=== PATIENT | female | born 1975 ===

== ENCOUNTER 2020-10-27 14:13 | Emergency (ER) | payer SELFPAY ==
[2020-10-27] MEDS ORDERED: hydrOXYzine HCL 25 MG TAB ONE (14:50)
[2020-10-27 14:58] LABS: Urine Blood 2+ (Negative); Urine Glucose Negative (Negative); Urine Protein Negative (Negative); Urine Specific Gravity 1.015 (1.005-1.030)
--- NOTE | 2020-10-27 16:49 | RAD REPORT ---
EXAM DESCRIPTION: RAD - Chest Pa And Lat (2 Views) - 10/27/2020 4:44 pm CLINICAL HISTORY: DYSPNEA, shortness of breath and chest tightness COMPARISON: None TECHNIQUE: Frontal and lateral views of the chest were obtained. FINDINGS: The lungs are clear. Heart size is normal and central vasculature is within normal limit s. No pleural effusion or pneumothorax seen. No acute bony finding noted. No aortic abnormality. IMPRESSION: No acute cardiopulmonary process.
--- NOTE | 2020-10-27 16:58 | EDPHYS ---
Physician Documentation [facility] Name: Charu Stark Age: 45 yrs Sex: Female : 1975 Arrival Date: 10/27/2020 Time: 14:16 Bed DX2 Private MD: ED Physician Pawel Hargrove HPI: 10/27 15:24 This 45 yrs old Unknown Female presents to ER via Ambulatory with complaints of kb Shortness Of Breath, Chest Pain. 15:24 The patient has shortness of breath at rest. Onset: The symptoms/episode began/occurred kb 3 day(s) ago. Duration: The symptoms are continuous. The patient's shortness of breath is aggravated by nothing, is alleviated by nothing. Associated signs and symptoms: Pertinent positives: insomnia, anxiety. Severity of symptoms: At their worst the symptoms were mild moderate in the emergency department the symptoms are unchanged. The patient has not experienced similar symptoms in the past. The patient has not recently seen a physician. Pt states she feels like she cannot take a deep breath. States she hasn't been able to sleep well in the past 3 nights and is anxious. Reports decreased appetite. Historical: - Allergies: 14:22 Iodine; sv - Immunization history:: Adult Immunizations up to date. - Social history:: Smoking status: Patient denies any tobacco usage or history of. ROS: 15:23 Constitutional: Negative for fever, chills, and weight loss. kb 15:23 Respiratory: Positive for shortness of breath. 15:23 Psych: Positive for anxiety. 15:23 All other systems are negative. Exam: 14:38 ECG was reviewed by the Attending Physician. kb 15:24 Constitutional: This is a well developed, well nourished patient who is awake, alert, kb and in no acute distress. Head/Face: Normocephalic, atraumatic. ENT: Moist Mucous membranes Cardiovascular: Regular rate and rhythm with a normal S1 and S2. No gallops, murmurs, or rubs. No pulse deficits. Respiratory: Respirations even and unlabored. No increased work of breathing, no retractions or nasal flaring. Skin: Warm, dry with normal turgor. Normal color. MS/ Extremity: Pulses equal, no cyanosis. Neurovascular intact. Full, normal range of motion. Neuro: Awake and alert, GCS 15, oriented to person, place, time, and situation. Moves all extremities. Normal gait. Psych: Awake, alert, with orientation to person, place and time. Behavior, mood, and affect are within normal limits. 15:24 Constitutional: The patient appears anxious. Vital Signs: 14:19 BP 142 / 83; Pulse 100; Resp 18; Temp 98.1(TE); Pulse Ox 96% ; Weight 62.6 kg; Height 5 sv ft. 2 in. (157.48 cm); 14:19 Body Mass Index 25.24 (62.60 kg, 157.48 cm) sv MDM: 14:26 Patient medically screened. kb 15:24 Data reviewed: vital signs, nurses notes. Data interpreted: Pulse oximetry: on room air kb is 96 %. Interpretation: normal. 16:57 Counseling: I had a detailed discussion with the patient and/or guardian regarding: the kb historical points, exam findings, and any diagnostic results supporting the discharge/admit diagnosis, lab results, radiology results, the need for outpatient follow up, a family practitioner, to return to the emergency department if symptoms worsen or persist or if there are any questions or concerns that arise at home. ED course: Pt feeling better. 10/27 14:23 Order name: COVID-19 : Document "Date of Symptom Onset" if Symptomatic. sv 10/27 14:57 Order name: Urine Dipstick-Ancillary; Complete Time: 14:59 EDMS 10/27 16:16 Order name: SARS-COV-2 RT PCR; Complete Time: 16:17 EDMS 10/27 16:17 Order name: Chest Pa And Lat (2 Views) XRAY; Complete Time: 16:54 kb 10/27 14:23 Order name: EKG; Complete Time: 14:24 sv 10/27 14:23 Order name: EKG - Nurse/Tech; Complete Time: 14:35 sv 10/27 14:23 Order name: Urine Dipstick-Ancillary (obtain specimen); Complete Time: 14:58 sv EC:38 Rate is 113 beats/min. Rhythm is regular. QRS [place] is Normal. MT interval is normal at kb 116 msec. QRS interval is normal at 80 msec. QT interval is normal at 318 msec. Administered Medications: 14:24 CANCELLED (Duplicate Order): HydrALAZINE 25 mg PO once sv 14:35 Drug: hydrOXYzine 25 mg Route: PO; sv Disposition: 17:16 Co-signature as Attending Physician, Pawel Hargrove MD. rn Disposition Summary: 10/27/20 16:57 Discharge Ordered Location: Home kb Condition: Stable kb Diagnosis - Acute stress reaction kb Followup: kb - With: Emergency Department - When: As needed - Reason: Worsening of condition Followup: kb - With: Private Physician - When: 2 - 3 days - Reason: Recheck today's complaints, Continuance of care, Re-evaluation by your physician Discharge Instructions: - Discharge Summary Sheet kb - Shortness of Breath, Adult, [id number] kb - Generalized Anxiety Disorder, Adult kb Forms: - Medication Reconciliation Form kb - Thank You Letter kb - Antibiotic Education kb - Prescription Opioid Use kb Prescriptions: - Hydroxyzine HCl 25 mg Oral Tablet - take 1 tablet by ORAL route every 6 hours As needed; 12 tablet; Refills: 0, kb Product Selection Permitted Signatures: Dispatcher [employer] EDSD Neena Fuentes FNP-C FNP-Ckb Verde, Stephanie, RN RN Pawel Hargrove MD MD varnisher plasticoater: (The following items were deleted from the chart) 14:24 14:24 HydrALAZINE 25 mg PO once ordered. [facility] 15:13 14:24 CORONAVIRUS ordered. EDSD EDSD
--- NOTE | 2020-10-27 16:58 | ER ---
Nurse's Notes [facility] Name: Charu Stark Age: 45 yrs Sex: Female : 1975 Arrival Date: 10/27/2020 Time: 14:16 Bed DX2 Private MD: Diagnosis: Acute stress reaction Presentation: 10/27 14:19 Chief complaint: Patient states: SOB, unable to sleep, anxious x 2 days. Risk sv Assessment: Do you want to hurt yourself or someone else? Patient reports no desire to harm self or others. Onset of symptoms was October 25, 2020. 14:19 Method Of Arrival: Ambulatory sv 14:19 Acuity: JOANIE 3 sv 14:19 Coronavirus screen: Vaccine status: Patient reports being unvaccinated. Client presents sv with at least one sign or symptom that may indicate coronavirus-19. Standard/surgical mask placed on the client. Ebola Screen: No symptoms or risks identified at this time. Initial Sepsis Screen: Does the patient meet any 2 criteria? No. Patient's initial sepsis screen is negative. Does the patient have a suspected source of infection? No. Patient's initial sepsis screen is negative. Triage Assessment: 14:22 General: Appears in no apparent distress. comfortable, Behavior is calm, cooperative, sv appropriate for age. Pain: Denies pain. Neuro: Level of Consciousness is awake, alert, obeys commands, Oriented to person, place, time, situation, Gait is steady. Respiratory: Reports shortness of breath Airway is patent Respiratory effort is even, unlabored, Respiratory pattern is regular, symmetrical, Onset: The symptoms/episode began/occurred 2 days ago, the patient has mild shortness of breath. Derm: Skin is pink, warm \\T\\ dry. Historical: - Allergies: 14:22 Iodine; sv - Immunization history:: Adult Immunizations up to date. - Social history:: Smoking status: Patient denies any tobacco usage or history of. Assessment: 17:12 Reassessment: Patient appears in no apparent distress at this time. Patient and/or ss family updated on plan of care and expected duration. Pain level reassessed. Patient is alert, oriented x 3, equal unlabored respirations, skin warm/dry/pink. Patient states feeling better. Patient states symptoms have improved. Vital Signs: 14:19 BP 142 / 83; Pulse 100; Resp 18; Temp 98.1(TE); Pulse Ox 96% ; Weight 62.6 kg; Height 5 sv ft. 2 in. (157.48 cm); 14:19 Body Mass Index 25.24 (62.60 kg, 157.48 cm) sv ED Course: 14:16 Patient arrived in ED. ds1 14:19 Arm band placed on. sv 14:20 Triage completed. sv 14:26 Neena Fuentes [facility]C [facility]. kb 14:26 Pawel Hargrove MD is Attending Physician. kb 14:33 EKG completed in triage. Results shown to MD. sv 14:59 COVID-19 : Document "Date of Symptom Onset" if Symptomatic. Sent. sv 15:25 Anaya Waters, RN is Primary Nurse. kg 16:44 Chest Pa And Lat (2 Views) XRAY In Process Unspecified. EDMS 17:10 No provider procedures requiring assistance completed. Patient did not have IV access ss during this emergency room visit. Administered Medications: 14:24 CANCELLED (Duplicate Order): HydrALAZINE 25 mg PO once sv 14:35 Drug: hydrOXYzine 25 mg Route: PO; sv Outcome: 16:57 Discharge ordered by MD. kb 17:10 Discharged to home ambulatory. ss 17:10 Condition: improved 17:10 Discharge instructions given to patient, Instructed on discharge instructions, follow up and referral plans. medication usage, Demonstrated understanding of instructions, follow-up care, medications, Prescriptions given X 1. 17:12 Patient left the ED. ss Signatures: Dispatcher [employer] EDIA Neena Fuentes FNP-C FNP-Ckb Verde, Stephanie, RN RN Barbra Turpin ds1 Tali Peck RN RN Anaya Waters, MATTHEW CASTRO kg Corrections: (The following items were deleted from the chart) 14:22 14:19 Acuity: JOANIE 4 sv sv 14:22 14:19 Resp 18bpm; Temp 98.1F Temporal; 62.6 kg; Height 5 ft. 2 in.; BMI: 25.2; sv sv
[2020-10-27 17:27] VITALS: BP 142/83; TEMP 98.1; O2SAT 96
== END 2020-10-27 17:12 | disposition home or self-care (01) ==
LOC: ER 14:13
DX: F43.0 Acute stress reaction (principal); Z20.822 Contact with and (suspected) exposure to COVID-19; Z91.048 Other nonmedicinal substance allergy status
CPT/HCPCS: 71046; 81003; 93005; 99284; U0003